=== PATIENT | female | born 1965 | race Caucasian/White ===

== ENCOUNTER 2017-08-12 19:47 | Inpatient (IN) | payer BC, OTHER ==
[~2017-08-12] VITALS: Ht 157.5 cm; Wt 105.5 kg
[~2017-08-12 19:47] MED LIST: GEOD80CA PO; PROZ40CA PO; RISP1 PO
[2017-08-12 20:45] VITALS: BP 141/82; PULSE 94; RESP 18; TEMP 98.9; O2SAT 95
--- NOTE | 2017-08-12 20:59 | PD ---
HPI Chief Complaint: Psychiatric Symptoms Time Seen by Provider: 20:40 Travel History International Travel<30 days: No Contact w/Intl Traveler<30days: No Traveled to known affect area: No History of Present Illness HPI 52-year-old white female presents to emergency department under Gaffney act by her psychiatrist Dr. Ontiveros. She had an appointment this evening at 6:15. She was hoping that he would just increase her antidepressant. She tells me that she been feeling more depressed lately. She's been understood for over 20 years and has been doing hospice now only for the last few months. She finds very stressful. She has contemplated overdosing on her medications. She denies any homicidal ideation. She does have complaints of chronic right knee pain but no other medical complaints. She claims that she's been compliant with her medicines. Checks he worked today before going to her psychiatrist appointment. She denies any toxic ingestions. No homicidal ideation. PFSH Past Medical History Narrative Medical Depression, COPD, borderline diabetes Depression: Yes Cancer: No Cardiovascular Problems: No COPD: Yes Diabetes: No Diminished Hearing: No Endocrine: No Genitourinary: No Immune Disorder: No Musculoskeletal: No Neurologic: No Psychiatric: Yes Reproductive: No Respiratory: Yes (Asthma) Tetanus Vaccination: < 5 Years : 1 Para: 0 Past Surgical History Narrative Surgical Right shoulder reconstruction, D&C after miscarriage Gynecologic Surgery: Yes (D&C after a miscarriage) Social History Alcohol Use: Yes (occasionally) Tobacco Use: Yes Substance Use: No Allergies-Medications (Allergen,Severity, Reaction): Coded Allergies: No Known Allergies (Unverified , 09/17/16) Reported Meds & Prescriptions Reported Meds & Active Scripts Active Reported Risperdal (Risperidone) 4 Mg Tab 4 Mg PO HS Prozac (Fluoxetine HCl) 20 Mg Cap 30 Mg PO DAILY Geodon (Ziprasidone) 80 Mg Cap 80 Mg PO ONCE Review of Systems General / Constitutional: No: Fever Eyes: No: Visual changes HENT: No: Headaches Cardiovascular: No: Chest Pain or Discomfort Respiratory: No: Shortness of Breath Gastrointestinal: No: Abdominal Pain Genitourinary: No: Dysuria Musculoskeletal: Positive: Arthralgias, Pain Skin: No Rash Neurologic: No: Weakness Psychiatric: Positive: Depression, Suicidal Ideations, Mood Disorder, No: Anxiety, Disorder of Thought, Substance Abuse, Homicidal Ideation Endocrine: No: Polydipsia Hematologic/Lymphatic: No: Easy Bruising Physical Exam Narrative GENERAL: Well-nourished, well-developed patient. SKIN: Warm and dry. HEAD: Normocephalic and atraumatic. EYES: No scleral icterus. No injection or drainage. ENT: No nasal drainage noted. Mucous membranes pink. Airway patent. NECK: Supple, trachea midline. Moves head freely without obvious discomfort. CARDIOVASCULAR: Regular rate and rhythm without murmurs, gallops, or rubs. RESPIRATORY: Breath sounds equal bilaterally. No accessory muscle use. GASTROINTESTINAL: Abdomen soft, non-tender, nondistended. EXTREMITIES: No cyanosis or edema. BACK: Nontender without obvious deformity. No CVA tenderness. NEURO: Patient is alert and oriented. no sensorimotor deficits. Nonfocal. Normal speech. PSYCH: No delusions. No auditory or visual hallucinations. Data Data Last Documented VS Vital Signs Date Time Temp Pulse Resp B/P (MAP) Pulse Ox O2 Delivery O2 Flow Rate FiO2 08/12/17 20:45 98.9 94 18 141/82 (101) 95 Room Air Orders Orders Complete Blood Count With Diff (08/12/17 20:41) Comprehensive Metabolic Panel (08/12/17 20:41) Thyroid Stimulating Hormone (08/12/17 20:41) Psych Screen (08/12/17 20:41) Drug Screen, Random Urine (08/12/17 20:41) Alcohol (Ethanol) (08/12/17 20:41) Salicylates (Aspirin) (08/12/17 20:41) Tylenol (Acetaminophen) (08/12/17 20:41) Labs Laboratory Tests Test 08/12/17 20:50 White Blood Count 13.6 TH/MM3 Red Blood Count 4.84 MIL/MM3 Hemoglobin 15.4 GM/DL Hematocrit 44.8 % Mean Corpuscular Volume 92.4 FL Mean Corpuscular Hemoglobin 31.8 PG Mean Corpuscular Hemoglobin Concent 34.4 % Red Cell Distribution Width 14.1 % Platelet Count 286 TH/MM3 Mean Platelet Volume 7.9 FL Neutrophils (%) (Auto) 73.0 % Lymphocytes (%) (Auto) 18.7 % Monocytes (%) (Auto) 5.6 % Eosinophils (%) (Auto) 2.2 % Basophils (%) (Auto) 0.5 % Neutrophils # (Auto) 9.9 TH/MM3 Lymphocytes # (Auto) 2.5 TH/MM3 Monocytes # (Auto) 0.8 TH/MM3 Eosinophils # (Auto) 0.3 TH/MM3 Basophils # (Auto) 0.1 TH/MM3 CBC Comment DIFF FINAL Differential Comment Blood Urea Nitrogen 10 MG/DL Creatinine 0.83 MG/DL Random Glucose 92 MG/DL Total Protein 8.1 GM/DL Albumin 4.0 GM/DL Calcium Level 10.2 MG/DL Alkaline Phosphatase 92 U/L Aspartate Amino Transf (AST/SGOT) 66 U/L Alanine Aminotransferase (ALT/SGPT) 97 U/L Total Bilirubin 0.9 MG/DL Sodium Level 137 MEQ/L Potassium Level 3.9 MEQ/L Chloride Level 102 MEQ/L Carbon Dioxide Level 28.1 MEQ/L Anion Gap 7 MEQ/L Estimat Glomerular Filtration Rate 73 ML/MIN Thyroid Stimulating Hormone 3rd Gen 2.270 uIU/ML Salicylates Level 3.6 MG/DL Acetaminophen Level LESS THAN 2.0 MCG/ML Ethyl Alcohol Level LESS THAN 3 MG/DL [facility] Medical Decision Making Medical Screen Exam Complete: Yes Emergency Medical Condition: Yes Medical Record Reviewed: Yes Interpretation(s) Laboratory Tests Test 08/12/17 20:50 White Blood Count 13.6 TH/MM3 Red Blood Count 4.84 MIL/MM3 Hemoglobin 15.4 GM/DL Hematocrit 44.8 % Mean Corpuscular Volume 92.4 FL Mean Corpuscular Hemoglobin 31.8 PG Mean Corpuscular Hemoglobin Concent 34.4 % Red Cell Distribution Width 14.1 % Platelet Count 286 TH/MM3 Mean Platelet Volume 7.9 FL Neutrophils (%) (Auto) 73.0 % Lymphocytes (%) (Auto) 18.7 % Monocytes (%) (Auto) 5.6 % Eosinophils (%) (Auto) 2.2 % Basophils (%) (Auto) 0.5 % Neutrophils # (Auto) 9.9 TH/MM3 Lymphocytes # (Auto) 2.5 TH/MM3 Monocytes # (Auto) 0.8 TH/MM3 Eosinophils # (Auto) 0.3 TH/MM3 Basophils # (Auto) 0.1 TH/MM3 CBC Comment DIFF FINAL Differential Comment Blood Urea Nitrogen 10 MG/DL Creatinine 0.83 MG/DL Random Glucose 92 MG/DL Total Protein 8.1 GM/DL Albumin 4.0 GM/DL Calcium Level 10.2 MG/DL Alkaline Phosphatase 92 U/L Aspartate Amino Transf (AST/SGOT) 66 U/L Alanine Aminotransferase (ALT/SGPT) 97 U/L Total Bilirubin 0.9 MG/DL Sodium Level 137 MEQ/L Potassium Level 3.9 MEQ/L Chloride Level 102 MEQ/L Carbon Dioxide Level 28.1 MEQ/L Anion Gap 7 MEQ/L Estimat Glomerular Filtration Rate 73 ML/MIN Thyroid Stimulating Hormone 3rd Gen 2.270 uIU/ML Salicylates Level 3.6 MG/DL Acetaminophen Level LESS THAN 2.0 MCG/ML Ethyl Alcohol Level LESS THAN 3 MG/DL Differential Diagnosis MDM: High Differential diagnoses: Schizophrenia, schizoaffective disorder, bipolar, anxiety, depression, adjustment reaction, mood disorder NOS, ODD, depressive disorder NOS, dementia, dementia with agitation, psychosis NOS, substance induced mood disorder, DMDD, Asperger syndrome, infection,electrolyte abnormality, malingering. Narrative Course Mental health screening discussed with the patient. Psychiatric screen ordered. The patient is been medically cleared. Diagnosis Primary Impression: Medical clearance for psychiatric admission Condition: Stable Christopher Romo Aug 12, 2017 20:59
[2017-08-12 21:18] LABS: AUTOMATED NEUTROPHIL # 9.9 TH/MM3 (1.8-7.7); BASOPHIL # 0.1 TH/MM3 (0-0.2); BASOPHIL % 0.5 % (0.0-2.0); EOSINOPHIL # 0.3 TH/MM3 (0-0.4); EOSINOPHIL % 2.2 % (0.0-4.0); HEMATOCRIT 44.8 % (35.0-46.0); HEMOGLOBIN 15.4 GM/DL (11.6-15.3); LYMPH % 18.7 % (9.0-44.0); LYMPHOCYTE # 2.5 TH/MM3 (1.0-4.8); MEAN CELL VOLUME 92.4 FL (80.0-100.0); MEAN CORPUSCULAR HEMOGLOBIN 31.8 PG (27.0-34.0); MEAN CORPUSCULAR HGB CONC 34.4 % (32.0-36.0); MEAN PLATELET VOLUME 7.9 FL (7.0-11.0); MONO % 5.6 % (0.0-8.0); MONOCYTE # 0.8 TH/MM3 (0-0.9); PLATELET COUNT 286 TH/MM3 (150-450); RED BLOOD COUNT 4.84 MIL/MM3 (4.00-5.30); RED CELL DISTRIBUTION WIDTH 14.1 % (11.6-17.2); WHITE BLOOD COUNT 13.6 TH/MM3 (4.0-11.0)
[2017-08-12 21:39] LABS: AST (GOT) 66 U/L (15-37); BICARBONATE 28.1 MEQ/L (21.0-32.0); BLOOD UREA NITROGEN 10 MG/DL (7-18); CALCIUM 10.2 MG/DL (8.5-10.1); CHLORIDE 102 MEQ/L (98-107); CREATININE 0.83 MG/DL (0.50-1.00); GLOMERULAR FILTRATION RATE 73 ML/MIN (>89); GLUCOSE,RANDOM 92 MG/DL (74-106); SODIUM (NA) 137 MEQ/L (136-145)
[2017-08-12 21:41] LABS: ALT (GPT) 97 U/L (10-53)
[2017-08-12 21:51] LABS: ALKALINE PHOSPHATASE 92 U/L (45-117); TOTAL BILIRUBIN ADULT 0.9 MG/DL (0.2-1.0); TOTAL PROTEIN 8.1 GM/DL (6.4-8.2)
[2017-08-12 21:56] LABS: ACETAMINOPHEN LESS THAN 2.0 MCG/ML (10.0-30.0)
[2017-08-12] MEDS ORDERED: PROZ20CA11 PO (23:01)
[2017-08-12] MEDS ORDERED: RISP4TAB41 PO (23:01)
[2017-08-13] MEDS ORDERED: diphenhydrAMINE HCL 50 MG CAP PO PRN (00:30)
[2017-08-13] MEDS ORDERED: diphenhydrAMINE HCL 50 MG/ML VIAL - HS PRN IM (00:30)
[2017-08-13] MEDS ORDERED: ALUMINUM/MAGNESIUM/SIMETH 30 ML CUP PO PRN (00:30)
[2017-08-13] MEDS ORDERED: hydrOXYzine HCL 50 MG TAB PO PRN (00:30)
[2017-08-13] MEDS ORDERED: diphenhydrAMINE HCL 50 MG CAP - HS PRN PO (00:30)
[2017-08-13] MEDS ORDERED: MAGNESIUM HYDROXIDE SUSP 30 ML CUP PO PRN (00:30)
[2017-08-13] MEDS ORDERED: diphenhydrAMINE HCL 50 MG/ML VIAL IM PRN (00:30)
[2017-08-13] MEDS ORDERED: ACETAMINOPHEN 325 MG TAB PO PRN (00:30)
[2017-08-13 02:34] VITALS: BP 124/66; PULSE 87; RESP 18; TEMP 98; O2SAT 93
[2017-08-13] MEDS ORDERED: GEOD80CA PO (05:49)
[2017-08-13 06:02] VITALS: BP 128/60; PULSE 97; RESP 18; TEMP 98.2; O2SAT 95
[2017-08-13] MEDS ORDERED: FLUoxetine HCL 20 MG CAP PO SCH (09:00)
[2017-08-13] MEDS: NICOTINE 21 MG/24 HR PATCH T-DERMAL SCH (09:45)
[2017-08-13 10:02] LABS: BICARBONATE 27.6 MEQ/L (21.0-32.0); BLOOD UREA NITROGEN 9 MG/DL (7-18); CALCIUM 9.6 MG/DL (8.5-10.1); CHLORIDE 102 MEQ/L (98-107); GLOMERULAR FILTRATION RATE 76 ML/MIN (>89); GLUCOSE,RANDOM 185 MG/DL (74-106); SODIUM (NA) 136 MEQ/L (136-145)
[2017-08-13 10:04] LABS: CHOLESTEROL 138 MG/DL (120-200); TRIGLYCERIDES 145 MG/DL (42-150)
[2017-08-13 10:10] LABS: CHOLESTEROL/ HDL RATIO 3.75 RATIO; HDL CHOLESTEROL 36.8 MG/DL (40.0-60.0); LDL CHOLESTEROL 72 MG/DL (0-99)
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
--- NOTE | 2017-08-13 14:27 | PD.CONS ---
HPI Service [facility] Hospitalists Consult Requested By Dr. Dunn Reason for Consult Medical Management Primary Care Physician Chaz Egan MD Diagnoses: (1) Major depressive disorder, recurrent severe without psychotic features History of Present Illness Written by Tiny Mcdermott, acting as scribe for Dr. Coulter on 08/13/17 at 16: 09. 52-year-old female with history of depression, tobacco use, borderline diet controlled diabetes, osteoarthritis, seasonal allergies, admitted to inpatient psychiatry under Gaffney Act placed by outpatient physician Dr. Mickey Ontiveros, with suicidal ideations and plan to overdose on medications. Hospitalists consulted for medical management. The patient's only complaint is right knee pain over the past 1-2 weeks. She received a cortisone injection as outpatient which she believes is helping. No new injury. She is able to ambulate without difficulty. She denies being on any medications for her borderline diabetes. She takes a baby aspirin daily, Claritin for seasonal allergies, and psychiatric medications. She smokes 1PPD tobacco. She denies any other medical complaints including no headache, visual changes, cough, chest pain, shortness of breath, abdominal pain, nausea/vomiting, or urinary complaints. Review of Systems Except as stated in HPI: all other systems reviewed are Neg Past Family Social History Allergies: Coded Allergies: No Known Allergies (Unverified Allergy, Unknown, 08/13/17) Past Medical History depression borderline diet controlled diabetes osteoarthritis seasonal allergies Past Surgical History Right shoulder surgery D&C Reported Medications Geodon (Ziprasidone) 80 Mg Cap 80 Mg PO DAILY Risperdal (Risperidone) 4 Mg Tab 4 Mg PO HS Prozac (Fluoxetine HCl) 20 Mg Cap 30 Mg PO DAILY Active Ordered Medications Current Medications Medications (Trade) Dose Ordered Sig/Isabel Route Start Time Stop Time Status Last Admin (Atarax) 50 mg Q6H PRN PO 08/13/17 00:30 (Benadryl) 50 mg HS PRN PO 08/13/17 00:30 (Tylenol) 650 mg Q4H PRN PO 08/13/17 00:30 (Milk Of Magnesia Liq) 30 ml DAILY PRN PO 08/13/17 00:30 (Mag-Al Plus Susp Liq) 30 ml Q6H PRN PO 08/13/17 00:30 (Habitrol 21 Mg Patch.24 Hr) 1 patch DAILY T-DERMAL 08/13/17 09:00 08/13/17 09:45 Miscellaneous Information 1 HS T-DERMAL 08/13/17 21:00 (Pneumovax-23 Inj) 25 mcg ONCE ONCE IM 08/14/17 10:00 08/14/17 10:01 (PROzac) 40 mg DAILY PO 08/14/17 09:00 (risperDAL) 2 mg DAILY@0800,1600 PO 08/13/17 16:00 (Geodon) 120 mg HS PO 08/13/17 21:00 Family History Family history positive for alcoholism Social History Smokes tobacco 1PPD Occasional alcohol use, has consumed 2 alcoholic beverages over the past 2 weeks Denies any illicit drug use Physical Exam Vital Signs Vital Signs Date Time Temp Pulse Resp B/P (MAP) Pulse Ox O2 Delivery O2 Flow Rate FiO2 08/13/17 06:02 98.2 97 18 128/60 (82) 95 08/13/17 02:34 98.0 87 18 124/66 (85) 93 08/12/17 20:45 98.9 94 18 141/82 (101) 95 Room Air Physical Exam GENERAL: Well-nourished, well-developed middle aged female patient in [facility]. SKIN: Warm and dry. No rash. HEAD: Normocephalic. Atraumatic. EYES: Pupils equal and round. No scleral icterus. No injection or drainage. ENT: No nasal bleeding or discharge. Mucous membranes pink and moist. NECK: Supple. Trachea midline. CARDIOVASCULAR: Regular rate and rhythm. S1, S2 noted. No murmur appreciated. RESPIRATORY: No accessory muscle use. Clear to auscultation. Breath sounds equal bilaterally. GASTROINTESTINAL: Abdomen soft, non-tender, nondistended. Normoactive bowel sounds x4. MUSCULOSKELETAL: No obvious deformities. Extremities without clubbing, cyanosis , or edema. NEUROLOGICAL: Awake and alert. No obvious cranial nerve deficits. Motor grossly within normal limits. Normal speech. Laboratory Laboratory Tests Test 08/12/17 20:50 08/13/17 01:15 08/13/17 08:26 White Blood Count 13.6 Red Blood Count 4.84 Hemoglobin 15.4 Hematocrit 44.8 Mean Corpuscular Volume 92.4 Mean Corpuscular Hemoglobin 31.8 Mean Corpuscular Hemoglobin Concent 34.4 Red Cell Distribution Width 14.1 Platelet Count 286 Mean Platelet Volume 7.9 Neutrophils (%) (Auto) 73.0 Lymphocytes (%) (Auto) 18.7 Monocytes (%) (Auto) 5.6 Eosinophils (%) (Auto) 2.2 Basophils (%) (Auto) 0.5 Neutrophils # (Auto) 9.9 Lymphocytes # (Auto) 2.5 Monocytes # (Auto) 0.8 Eosinophils # (Auto) 0.3 Basophils # (Auto) 0.1 CBC Comment DIFF FINAL Differential Comment Blood Urea Nitrogen 10 9 Creatinine 0.83 0.80 Random Glucose 92 185 Total Protein 8.1 Albumin 4.0 Calcium Level 10.2 9.6 Alkaline Phosphatase 92 Aspartate Amino Transf (AST/SGOT) 66 Alanine Aminotransferase (ALT/SGPT) 97 Total Bilirubin 0.9 Sodium Level 137 136 Potassium Level 3.9 3.8 Chloride Level 102 102 Carbon Dioxide Level 28.1 27.6 Anion Gap 7 6 Estimat Glomerular Filtration Rate 73 76 Thyroid Stimulating Hormone 3rd Gen 2.270 Salicylates Level 3.6 Acetaminophen Level LESS THAN 2.0 Ethyl Alcohol Level LESS THAN 3 Urine Opiates Screen NEG Urine Barbiturates Screen NEG Urine Amphetamines Screen NEG Urine Benzodiazepines Screen NEG Urine Cocaine Screen NEG Urine Cannabinoids Screen NEG Triglycerides Level 145 Cholesterol Level 138 LDL Cholesterol 72 HDL Cholesterol 36.8 Cholesterol/HDL Ratio 3.75 Result Diagram: 08/12/17204908/13/17825 Assessment and Plan Assessment and Plan 52-year-old female with history of depression, tobacco use, borderline diet controlled diabetes, osteoarthritis, seasonal allergies, admitted to inpatient psychiatry under Gaffney Act placed by outpatient physician Dr. Mickey Ontiveros, with suicidal ideations and plan to overdose on medications. Hospitalists consulted for medical management. Depression with Suicidal Ideations: presented under Gaffney Act placed by outpatient physician Dr. Mickey Ontiveros -continue management per psychiatry Diet-Controlled Borderline Diabetes: chronic -HgbA1c 5.8 -Diabetic diet Osteoarthritis: complain of pain at right knee. S/p recent cortisone injection as outpatient -continue ibuprofen prn pain -outpatient f/up with orthopedics Seasonal Allergies: chronic -continue Claritin Transaminitis: LFTs mildly elevated at 66 and 97. Unclear etiology, possibly secondary to psychiatric medications. -no GI complaints at this time -avoid hepatotoxins -recommend repeat LFTs and liver U/S as outpatient -f/up with PCP Leukocytosis: WBC 13.6. Suspect reactive. No active signs of infection. Afebrile. -Check UA -repeat CBC in am DVT Prophylaxis: patient is ambulatory Discussed Condition With Patient Medical Decision Making MDM Remarks This note was transcribed by darlin Mcdermott. I, Dr. Nima Coulter personally performed the history, physical exam, and medical decision making; and confirmed the accuracy of the information in the transcribed note. Authenticated by Dr. Nima Coulter on 08/13/17 at 18:51. Tiny Mcdermott PA-C Aug 13, 2017 14:27 Nima Coulter MD Aug 13, 2017 18:51
[2017-08-13 15:09] LABS: HEMOGLOBIN A1C 5.8 % (4.3-6.0)
[2017-08-13] MEDS: risperiDONE 1 MG TAB PO SCH (17:04)
[2017-08-13] MEDS: REMOVE OLD NICOTINE PATCH T-DERMAL SCH (21:00)
[2017-08-13] MEDS ORDERED: risperiDONE 1 MG TAB PO SCH (21:00)
[2017-08-13] MEDS: ZIPRASIDONE HCL 60 MG CAP PO SCH (21:12)
[2017-08-14 05:29] VITALS: BP 128/66; PULSE 85; RESP 16; TEMP 97.4; O2SAT 95
[2017-08-14] MEDS: risperiDONE 1 MG TAB PO SCH ×2 (08:25→18:02)
[2017-08-14] MEDS: FLUoxetine HCL 20 MG CAP PO SCH (08:25)
[2017-08-14] MEDS: LORATADINE 10 MG TAB PO SCH (08:25)
[2017-08-14] MEDS: NICOTINE 21 MG/24 HR PATCH T-DERMAL SCH (08:26)
[2017-08-14] MEDS ORDERED: PNEUMOCOCCAL POLYVALENT INJ 25 MCG/0.5 ML SYR IM ONE (10:00)
--- NOTE | 2017-08-14 12:08 | HHI.PYPN ---
Subjective Chief Complaint: depressed with suicidal ideation Remarks Pt seen and discussed with staff. She was admitted due to depression and suicidal ideation. She has been compliant [facility] medications. She denies SI today. She remains very depressed, but did come out of her room and did ADLs. She is tolerating medication without side effects. Mental Status Examination Appearance: Appropriate Consciousness: Alert Orientation: x4 Motor Activity: Normal gait Speech: Unremarkable Language: Adequate Fund of Knowledge: Adequate Attention and Concentration: Adequate Memory: Unremarkable Mood: Sad, Other (dysphoric) Affect: Blunt, Other (decreased range and intensity) Thought Content: Appropriate Hallucination Type: None Delusion Type: None Suicidal Ideation: No (denies at this time) Suicidal Plan: No Suicidal Intention: No Homicidal Ideation: No Homicidal Plan: No Homicidal Intention: No Insight: Adequate Judgment: Adequate Results Labs Test 08/13/17 16:41 Vitals/IOs Vital Signs Date Time Temp Pulse Resp B/P (MAP) Pulse Ox O2 Delivery O2 Flow Rate FiO2 08/14/17 05:29 97.4 85 16 128/66 (86) 95 08/12/17 20:45 Room Air Assessment & Plan Problem List: (1) Major depressive disorder, recurrent severe without psychotic features ICD Codes: F33.2 - Major depressive disorder, recurrent severe without psychotic features Status: Chronic Assessment & Plan continue current tx plan. Estimated LOS: days Justification for Cont. Inpt. monitoring for safety Request HC Surrog/Guard Advoc?: No Nelda Kumar MD Aug 14, 2017 12:08
[2017-08-14] MEDS: IBUPROFEN 400 MG TAB PO PRN (13:37)
[2017-08-14 14:24] LABS: AUTOMATED NEUTROPHIL # 8.8 TH/MM3 (1.8-7.7); BASOPHIL # 0.1 TH/MM3 (0-0.2); BASOPHIL % 0.6 % (0.0-2.0); EOSINOPHIL # 0.2 TH/MM3 (0-0.4); EOSINOPHIL % 1.7 % (0.0-4.0); HEMATOCRIT 42.2 % (35.0-46.0); HEMOGLOBIN 14.5 GM/DL (11.6-15.3); LYMPH % 22.5 % (9.0-44.0); LYMPHOCYTE # 2.9 TH/MM3 (1.0-4.8); MEAN CELL VOLUME 93.3 FL (80.0-100.0); MEAN CORPUSCULAR HEMOGLOBIN 32.1 PG (27.0-34.0); MEAN CORPUSCULAR HGB CONC 34.4 % (32.0-36.0); MEAN PLATELET VOLUME 7.8 FL (7.0-11.0); MONO % 6.6 % (0.0-8.0); MONOCYTE # 0.9 TH/MM3 (0-0.9); NEUT % 68.6 % (16.0-70.0); PLATELET COUNT 262 TH/MM3 (150-450); RED BLOOD COUNT 4.53 MIL/MM3 (4.00-5.30); RED CELL DISTRIBUTION WIDTH 13.9 % (11.6-17.2); WHITE BLOOD COUNT 12.9 TH/MM3 (4.0-11.0)
[2017-08-14 14:59] LABS: ALBUMIN 3.8 GM/DL (3.4-5.0); ALKALINE PHOSPHATASE 87 U/L (45-117); ALT (GPT) 95 U/L (10-53); AST (GOT) 75 U/L (15-37); BLOOD UREA NITROGEN 13 MG/DL (7-18); CALCIUM 9.8 MG/DL (8.5-10.1); CHLORIDE 104 MEQ/L (98-107); CREATININE 0.85 MG/DL (0.50-1.00); GLOMERULAR FILTRATION RATE 71 ML/MIN (>89); GLUCOSE,RANDOM 82 MG/DL (74-106); SODIUM (NA) 138 MEQ/L (136-145); TOTAL BILIRUBIN ADULT 0.7 MG/DL (0.2-1.0); TOTAL PROTEIN 7.6 GM/DL (6.4-8.2)
[2017-08-14 18:14] VITALS: BP 131/74; PULSE 85; RESP 18; TEMP 97.1; O2SAT 98
[2017-08-14 18:49] LABS: BACTERIA, URINE FEW /hpf; BILIRUBIN, URINE NEG (NEG); BLOOD, URINE TRACE (NEG); CALCIUM OXALATE CRYSTALS,URINE RARE /hpf; GLUCOSE,URINE NEG (NEG); KETONE, URINE TRACE mg/dL (NEG); MUCUS URINE FEW /lpf (OCC); NITRITE,URINE NEG (NEG); SQUAMOUS EPITHELIAL CELL URINE <1 /hpf (0-5); URINE COLOR YELLOW (YELLW/STRAW); URINE LEUKOCYTE ESTERASE LARGE (NEG)
[2017-08-14] MEDS: ZIPRASIDONE HCL 60 MG CAP PO SCH (20:55)
[2017-08-14] MEDS: REMOVE OLD NICOTINE PATCH T-DERMAL SCH (20:56)
[2017-08-15 05:26] VITALS: BP 140/65; PULSE 96; RESP 18; TEMP 97.9; O2SAT 95
[2017-08-15] MEDS: FLUoxetine HCL 20 MG CAP PO SCH (09:22)
[2017-08-15] MEDS: risperiDONE 1 MG TAB PO SCH ×2 (09:23→17:49)
[2017-08-15] MEDS: SULFAMETHOXAZOLE-TRIMETHOPRIM DS 800-160 MG TAB PO SCH ×2 (09:23→21:00)
[2017-08-15] MEDS: LORATADINE 10 MG TAB PO SCH (09:23)
[2017-08-15] MEDS: NICOTINE 21 MG/24 HR PATCH T-DERMAL SCH (09:24)
[2017-08-15] MEDS: IBUPROFEN 400 MG TAB PO PRN (10:20)
--- NOTE | 2017-08-15 14:33 | HHI.PR ---
Subjective Remarks Follow up UTI. Patient seen in day room with Tiny VINES. Patient has no complaints at this time. Denies urinary symptoms. No fever/chills. Objective Vitals Vital Signs Date Time Temp Pulse Resp B/P (MAP) Pulse Ox O2 Delivery O2 Flow Rate FiO2 08/15/17 11:20 12 08/15/17 05:26 97.9 96 18 140/65 (90) 95 08/14/17 18:14 97.1 85 18 131/74 (93) 98 Result Diagram: 08/14/17 1355 08/14/17 1355 Objective Remarks General: Obese female in no acute distress. Heart: Regular rate and rhythm. No murmur. Lungs: Clear to auscultation bilaterally. No wheezes, rales, or rhonchi. Breathing is nonlabored. Abdomen: Soft, nontender, nondistended. Extremities: No lower extremity edema. Psych: Alert, answers questions appropriately. Procedures None Urinary Catheter: No Vascular Central Line Catheter: No A/P Problem List: (1) Major depressive disorder, recurrent severe without psychotic features ICD Code: F33.2 - Major depressive disorder, recurrent severe without psychotic features Status: Chronic (2) UTI (urinary tract infection) ICD Code: N39.0 - Urinary tract infection, site not specified Assessment and Plan 1. Depression with suicidal ideation: Management per psychiatry. 2. Borderline diabetes: Diet controlled. A1c 5.8. 3. Osteoarthritis: S/P steroid injection recently as outpatient. Ibuprofen as needed. 4. Seasonal allergies: Continue claritin. 5. Leukocytosis: Possibly due to infection. Improving. 6. UTI: Urine culture is pending. Treat with Bactrim x 3 days. 7. DVT prophylaxis: Ambulation. [facility] will sign off. Reconsult if needed. Nima Coulter MD Aug 15, 2017 14:33
--- NOTE | 2017-08-15 16:50 | HHI.PYPN ---
Subjective Chief Complaint: depressed with suicidal ideation Remarks Pt seen and discussed with staff. She reports that she is feeling better today but affect remains flat. She has attended groups today and has been participating in activities in the day room. She reports that she has had some SI but is trying to distract self. No HI Mental Status Examination Appearance: Appropriate Consciousness: Alert Orientation: x4 Motor Activity: Normal gait Speech: Unremarkable Language: Adequate Fund of Knowledge: Adequate Attention and Concentration: Adequate Memory: Unremarkable Mood: Sad, Other (dysphoric) Affect: Blunt, Other (decreased range and intensity) Thought Content: Appropriate Hallucination Type: None Delusion Type: None Suicidal Ideation: No (denies at this time) Suicidal Plan: No Suicidal Intention: No Homicidal Ideation: No Homicidal Plan: No Homicidal Intention: No Insight: Adequate Judgment: Adequate Results Labs Test 08/14/17 18:00 Urine Color YELLOW Urine Turbidity CLEAR Urine pH 6.0 Urine Specific Lynn 1.024 Urine Protein TRACE mg/dL Urine Glucose (UA) NEG mg/dL Urine Ketones TRACE mg/dL Urine Occult Blood TRACE Urine Nitrite NEG Urine Bilirubin NEG Urine Urobilinogen LESS THAN 2.0 MG/DL Urine Leukocyte Esterase LARGE Urine RBC 9 /hpf Urine WBC 29 /hpf Urine Squamous Epithelial Cells <1 /hpf Urine Calcium Oxalate Crystals RARE /hpf Urine Bacteria FEW /hpf Urine Mucus FEW /lpf Microscopic Urinalysis Comment CULTURE INDICATED Date/Time Source Procedure Growth Status 08/14/17 18:00 Urine Clean Catch Urine Culture - Preliminary IMMATURE GROWTH - REINCUBATE Resulted Vitals/IOs Vital Signs Date Time Temp Pulse Resp B/P (MAP) Pulse Ox O2 Delivery O2 Flow Rate FiO2 08/15/17 11:20 12 08/15/17 05:26 97.9 96 140/65 (90) 95 08/12/17 20:45 Room Air Assessment & Plan Problem List: (1) Major depressive disorder, recurrent severe without psychotic features ICD Codes: F33.2 - Major depressive disorder, recurrent severe without psychotic features Status: Chronic Assessment & Plan Continue current tx plan. Estimated LOS: days Justification for Cont. Inpt. impairments in safety Request HC Surrog/Guard Advoc?: Nelda Rodriguez MD Aug 15, 2017 16:50
[2017-08-15 17:03] VITALS: BP 126/69; PULSE 86; RESP 18; TEMP 98; O2SAT 99
[2017-08-15] MEDS: REMOVE OLD NICOTINE PATCH T-DERMAL SCH (21:00)
[2017-08-15] MEDS: ZIPRASIDONE HCL 60 MG CAP PO SCH (21:00)
[2017-08-16] MEDS: IBUPROFEN 400 MG TAB PO PRN ×2 (05:37→16:59)
[2017-08-16 05:39] VITALS: BP 105/52; PULSE 91; RESP 18; TEMP 97.5; O2SAT 98
[2017-08-16] MEDS: risperiDONE 1 MG TAB PO SCH ×2 (08:00→16:26)
[2017-08-16] MEDS: FLUoxetine HCL 20 MG CAP PO SCH (08:17)
[2017-08-16] MEDS: LORATADINE 10 MG TAB PO SCH (08:17)
[2017-08-16] MEDS: SULFAMETHOXAZOLE-TRIMETHOPRIM DS 800-160 MG TAB PO SCH ×2 (08:17→20:56)
[2017-08-16] MEDS: NICOTINE 21 MG/24 HR PATCH T-DERMAL SCH (08:17)
--- NOTE | 2017-08-16 15:36 | HHI.PYPN ---
Subjective Chief Complaint: depressed with suicidal ideation Remarks Patient seen with nurse Tovar, chart review, patient discussed with nurse. Patient states she is feeling better has good night sleep last night. Now denies voices or visions and denies suicidality. Patient continues to improve consider discharge tomorrow Review of Systems Except as stated in HPI: all other systems reviewed are Neg Mental Status Examination Appearance: Appropriate Consciousness: Alert Orientation: x4 Motor Activity: Normal gait Speech: Unremarkable Language: Adequate Fund of Knowledge: Adequate Attention and Concentration: Adequate Memory: Unremarkable Mood: Sad, Other (dysphoric) Affect: Blunt, Other (decreased range and intensity) Thought Content: Appropriate Hallucination Type: None Delusion Type: None Suicidal Ideation: No (denies at this time) Suicidal Plan: No Suicidal Intention: No Homicidal Ideation: No Homicidal Plan: No Homicidal Intention: No Insight: Adequate Judgment: Adequate Results Labs Date/Time Source Procedure Growth Status 08/14/17 18:00 Urine Clean Catch Urine Culture - Final 50-100,000 CFU/ML MIXED GRAM POSITIVE... Complete Vitals/IOs Vital Signs Date Time Temp Pulse Resp B/P (MAP) Pulse Ox O2 Delivery O2 Flow Rate FiO2 08/16/17 05:39 97.5 91 18 105/52 (69) 98 08/12/17 20:45 Room Air Assessment & Plan Problem List: (1) Major depressive disorder, recurrent severe without psychotic features ICD Codes: F33.2 - Major depressive disorder, recurrent severe without psychotic features Status: Chronic Assessment & Plan Estimated LOS: days patient continues to improve, denying suicidality voices or visions. Consider discharge tomorrow Justification for Cont. Inpt. At this time patient will decompensate to place a lower level of care Discharge Planning Return home Request HC Surrog/Guard Advoc?: No Aniceto Dunn MD Aug 16, 2017 15:36
[2017-08-16 18:17] VITALS: BP 133/86; PULSE 92; RESP 18; TEMP 97.3; O2SAT 96
[2017-08-16] MEDS: ZIPRASIDONE HCL 60 MG CAP PO SCH (20:56)
[2017-08-16] MEDS: REMOVE OLD NICOTINE PATCH T-DERMAL SCH (20:57)
[2017-08-17 05:14] VITALS: BP 120/66; PULSE 82; RESP 20; TEMP 97.3; O2SAT 95
[2017-08-17] MEDS: LORATADINE 10 MG TAB PO SCH (08:27)
[2017-08-17] MEDS: SULFAMETHOXAZOLE-TRIMETHOPRIM DS 800-160 MG TAB PO SCH (08:28)
[2017-08-17] MEDS: FLUoxetine HCL 20 MG CAP PO SCH (08:28)
[2017-08-17] MEDS: risperiDONE 1 MG TAB PO SCH ×2 (08:29→16:25)
[2017-08-17] MEDS: NICOTINE 21 MG/24 HR PATCH T-DERMAL SCH (09:00)
--- NOTE | 2017-08-17 09:28 | PD.TTN ---
Patient Problems 1. Discharge planning 2. Medication compliance 3. Knowledge deficit 4. Lack of coping skills Progress Toward Goals Provider Present: Dr. Wendi Dunn Provider Input: 08/16/17 - Dr. Dunn reports the patient is improving and remains medication compliant. Consider discharge for sometime this week. Psychiatric Counselors Present: DAJA Mendez Psych Therapist Input: 08/16/17 - Counselor will meet with patient to assess for progress and discuss plan for discharge. Group Spec/RT/OT/SCHULTZ Present: MARION Brink Group Spec/RT/OT/SCHULTZ Input: 08/16/17 - Patient does not attend groups. Discharge Plan 08/16/17 - Patient will be discharged home when stable and will follow-up with Dr. Ontiveros. Documentation Scribe: DAJA Mendez Date Resolved: Aug 16, 2017 Minerva Owen Aug 17, 2017 09:28
[2017-08-17] MEDS ORDERED: PROZ40CA PO (14:49)
[2017-08-17] MEDS ORDERED: GEOD60CA PO (14:49)
[2017-08-17] MEDS ORDERED: RISP2TAB37 PO (14:49)
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
== END 2017-08-17 17:10 | disposition home or self-care (01) | DRG 885 ==
LOC: NEDAMB 19:47 → NEDA 23:52 → H260 08-13 01:21
PROVIDERS: ADMIT Psychiatry & Neurology Psychiatry; ATTEND Psychiatry & Neurology Psychiatry
DX: F33.2 Major depressive disorder, recurrent severe without psychotic features (principal); R45.851 Suicidal ideations; Z68.41 Body mass index [BMI] 40.0-44.9, adult; N39.0 Urinary tract infection, site not specified; E11.9 Type 2 diabetes mellitus without complications; J44.9 Chronic obstructive pulmonary disease, unspecified; G47.00 Insomnia, unspecified; M19.90 Unspecified osteoarthritis, unspecified site; R74.0 Nonspecific elevation of levels of transaminase and lactic acid dehydrogenase [LDH]; E66.9 Obesity, unspecified; M25.561 Pain in right knee; G89.29 Other chronic pain; F17.210 Nicotine dependence, cigarettes, uncomplicated; Z62.810 Personal history of physical and sexual abuse in childhood
CPT/HCPCS: 80048; 80053; 80061; 80307; 81001; 83036; 84443; 85025; 87086; 99285